=== PATIENT | female | born 1965 | race Hispanic/Latino ===

== ENCOUNTER 2019-01-19 10:01 | Observation (INO) | payer BC, OTHER ==
[~2019-01-19] VITALS: Ht 157.5 cm; Wt 86.2 kg
[~2019-01-19 10:01] MED LIST: LOTENSIN20 MG PO
[2019-01-19] MEDS ORDERED: HYDRALAZINE HCL 20 MG/ML VIAL IV STA ×2 (10:04→10:59)
--- NOTE | 2019-01-19 10:37 | Diagnostic Imaging Report ---
Examination: CT head without contrast Clinical Indication: Left-sided numbness. Right-sided facial numbness. Technique: Transaxial noncontrast images from the skull base through the vertex were obtained. Sagittal and coronal reformatted images were done. Dose modulation, iterative reconstruction, and/or weight based adjustment of the mA/kV was utilized to reduce the radiation dose to as low as reasonably achievable. Comparison: None. Findings: Scalp: No abnormalities. Bones: Intact. No fractures. No blastic or lytic lesions. Brain sulci: Appropriate for patient's age. Ventricles: Normal in size and configuration. No hydrocephalus. Extra-axial space: No abnormalities. Parenchyma: No abnormal densities. No masses, hemorrhage, or acute or chronic cortical based vascular insults. Suprasellar region: No abnormalities. Craniocervical junction: The foramen magnum is patent. No Chiari one malformation. Impression: No intracranial abnormality. Signed by: Dr. Keily Boudreaux M.D. on 01/19/2019 10:34 AM
--- NOTE | 2019-01-19 10:42 | NUR ---
Del STANDARDS ENGINEER at bedside at this time informing pt of plan of care, & educating regarding HTN management. Understanding verbalized.
--- NOTE | 2019-01-19 10:58 | Diagnostic Imaging Report ---
EXAMINATION: CHEST SINGLE (PORTABLE) INDICATION: Right arm heaviness. Weakness in the leg. COMPARISON: None FINDINGS: AP view TUBES and LINES: None. LUNGS: Lungs are well inflated. There are bibasilar atelectasis. There is mild prominence of the central pulmonary vasculature, consistent with pulmonary venous congestion. PLEURA: No pleural effusion or pneumothorax. HEART AND MEDIASTINUM: The cardiomediastinal silhouette is unremarkable. BONES AND SOFT TISSUES: No acute osseous lesion. Soft tissues are unremarkable. UPPER ABDOMEN: No free air under the diaphragm. IMPRESSION: Central pulmonary venous congestion. Signed by: Dr. Livan Barraza M.D. on 01/19/2019 10:54 AM
[2019-01-19] MEDS ORDERED: ASPIRIN 81 MG CHEW TAB ONE (11:09)
[2019-01-19] MEDS ORDERED: ASPIRIN 81 MG CHEW TAB PO ONE (11:15)
[2019-01-19 11:22] LABS: INR 0.87; PROTHROMBIN TIME 12.3 seconds (11.9-14.5)
[2019-01-19 11:23] LABS: PARTIAL THROMBOPLASTIN TIME 30.2 seconds (23.8-35.5)
[2019-01-19 11:28] LABS: ALANINE AMINOTRANSFERASE 18 IU/L (0-55); ALBUMIN 3.7 g/dL (3.5-5.0); ALBUMIN/GLOBULIN RATIO 0.8 (0.8-2.0); ALKALINE PHOSPHATASE 112 IU/L (40-150); ANION GAP 13.6 mmol/L (8-16); BLOOD UREA NITROGEN 7 mg/dL (7-26); BUN/CREATININE RATIO 10 (6-25); CALCIUM 9.9 mg/dL (8.4-10.2); CARBON DIOXIDE 26 mmol/L (22-29); CHLORIDE 101 mmol/L (98-107); CREATINE KINASE 39 IU/L (29-168); CREATININE, SERUM 0.72 mg/dL (0.57-1.11); EST GLOMERULAR FILTRATION RATE > 60 ML/MIN (60-); GLUCOSE 105 mg/dL (74-118); MAGNESIUM 2.2 MG/DL (1.3-2.1); POTASSIUM 3.6 mmol/L (3.5-5.1); SODIUM 137 mmol/L (136-145)
[2019-01-19 11:49] LABS: BILIRUBIN,URINE NEGATIVE (NEGATIVE); CLARITY,URINE CLEAR (CLEAR); COLOR,URINE YELLOW (YELLOW); KETONES,URINE NEGATIVE (NEGATIVE); LEUKOCYTE ESTERASE ,URINE NEGATIVE (NEGATIVE); NITRITE,URINE NEGATIVE (NEGATIVE); PROTEIN,URINE DIPSTICK TRACE (NEGATIVE); URINE UROBILINOGEN 0.2 mg/dL (0.2 - 1)
[2019-01-19 11:58] LABS: BACTERIA,URINE FEW /HPF; EPITHELIAL CELLS,URINE RARE /LPF; RBC,URINE 0-5 /HPF (0-5); WBC,URINE (MAN) 0-5 /HPF (0-5)
[2019-01-19 12:04] LABS: BASOPHILS # (AUTO) 0.1 (0.0-0.1); BASOPHILS % 0.5 % (0.0-1.0); EOSINOPHILS % 0.4 % (0.0-6.0); HEMATOCRIT 40.5 % (34.2-44.1); HEMOGLOBIN 13.2 g/dL (12.0-16.0); LYMPHOCYTES % 22.4 % (18.0-39.1); MEAN CORPUSCULAR HEMOGLOBIN 27.4 pg (28-32); MEAN CORPUSCULAR HGB CONC 32.6 g/dL (31-35); MONOCYTES # (AUTO) 0.5 (0.2-0.8); MONOCYTES % 5.4 % (4.4-11.3); NEUTROPHILS # (AUTO) 6.4 (2.1-6.9); NEUTROPHILS % 70.8 % (38.7-80.0); PLATELET COUNT 376 x10e3/uL (140-360); RED BLOOD COUNT 4.82 x10e6/uL (3.6-5.1); RED CELL DISTRIBUTION WIDTH 14.1 % (11.7-14.4)
--- NOTE | 2019-01-19 13:07 | Diagnostic Imaging Report ---
Examination: MRI BRAIN WITHOUT CONTRAST History: Right arm weakness. Comparison studies: Head CT performed January 19, 2019 Technique: Sagittal T2; axial DWI, FLAIR, GRE or SWI, T1, Coronal FLAIR. Intravenous contrast: None Findings: Scalp: No abnormal signal. No masses. Bone marrow: Normal in signal intensity. Brain volume: Adequate for age. No volume loss. Ventricles: Normal in size and configuration. No hydrocephalus. Extra-axial spaces: No abnormalities. Parenchyma: There are innumerable punctate areas of T2/FLAIR hyperintensity in the periventricular and subcortical white matter, nonspecific. No masses, hemorrhage, or acute vascular insults. Suprasellar and sellar region: No abnormalities. Craniocervical junction: No abnormalities. The foramen magnum is patent. No Chiari malformations. Vessels: Normal flow-voids in the arteries and sinuses. Additional findings:None. IMPRESSION: 1. No acute intracranial abnormalities. 2. Mild chronic microvascular ischemic change. Signed by: Dr. Keily Boudreaux M.D. on 01/19/2019 1:04 PM
[2019-01-19] MEDS ORDERED: HYDRALAZINE HCL 20 MG/ML VIAL IV PRN ×2 (15:00→15:15)
--- OUTSIDE RECORDS SUMMARY | 2019-01-19 15:17 | XMS REPORT ---
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 Allergies, Adverse Reactions, Alerts This patient has no known allergies or adverse reactions. Medications This patient has no known medications. Results Test Description Test Time Test Comments Text Results Atomic Results Result Comments MRI BRAIN WO 2019-01-19 12:48:00 [place] [address] Patient Name: DEREK MONROY MR #: [id number] : 1965 Age/Sex: 53/F Req #: [id number] Adm Physician: Ordered by: МАРИНА FRIEDMAN VISION SPECIALIST Report #: [id number] Location: ER Room/Bed: Procedure: [id number] MRI/MRI BRAIN WO Exam Date: Exam Time: REPORT STATUS: Signed Examination: MRI BRAIN WITHOUT CONTRAST History: Right arm weakness. Comparison studies: Head CT performed January 19, 2019 Technique: Sagittal T2; axial DWI, FLAIR, GRE or SWI, T1, Coronal FLAIR. Intravenous contrast: None Findings: Scalp: No abnormal signal. No masses. Bone marrow: Normal in signal intensity. Brain volume: Adequate for age. No volume loss. Ventricles: Normal in size and configuration. No hydrocephalus. Extra-axial spaces: No abnormalities. Parenchyma: There are innumerable punctate areas of T2/FLAIR hyperintensity in the periventricular and subcortical white matter, nonspecific. No masses, hemorrhage, or acute vascular insults. Suprasellar and sellar region: No abnormalities. Craniocervical junction: No abnormalities. The foramen magnum is patent. No Chiari malformations. Vessels: Normal flow-voids in the arteries and sinuses. Additional findings:None. IMPRESSION: 1. No acute intracranial abnormalities. 2. Mild chronic microvascular ischemic change. Signed by: Dr. Keily Boudreaux M.D. on 01/19/2019 1:04 PM Dictated By: KEILY GONSALEZ MD 1304 Transcribed By: GELA on 01/19/19 1304 COPY TO: МАРИНА FRIEDMAN NP CHEST SINGLE (PORTABLE) 2019-01-19 10:50:00 [place] [address] Patient Name: DEREK MONROY MR #: [id number] : 1965 Age/Sex: 53/F Req #: [id number] Adm Physician: Ordered by: МАРИНА FRIEDMAN NP Report #: [id number] Location: ER Room/Bed: Procedure: [id number] DX/CHEST SINGLE (PORTABLE) Exam Date: 01/19/19 Exam Time: 1005 REPORT STATUS: Signed EXAMINATION: CHEST SINGLE (PORTABLE) INDICATION: Right arm heaviness. Weakness in the leg. COMPARISON: None FINDINGS: AP view TUBES and LINES: None. LUNGS: Lungs are well inflated. There are bibasilar atelectasis. There is mild prominence of the central pulmonary vasculature, consistent with pulmonary venous congestion. PLEURA: No pleural effusion or pneumothorax. HEART AND MEDIASTINUM: The cardiomediastinal silhouette is unremarkable. BONES AND SOFT TISSUES: No acute osseous lesion. Soft tissues are unremarkable. UPPER ABDOMEN: No free air under the diaphragm. IMPRESSION: Central pulmonary venous congestion. Signed by: Dr. Fuentes Griffiths M.D. on 01/19/2019 10:54 AM Dictated By: FUENTES GRIFFITHS MD 1054 Transcribed By: GELA on 01/19/19 1054 COPY TO: МАРИНА FRIEDMAN NP CT BRAIN WO 2019-01-19 10:33:00 [place] [address] Patient Name: DEREK MONROY MR #: [id number] : 1965 Age/Sex: 53/F Req #: [id number] Adm Physician: Ordered by: МАРИНА FRIEDMAN NP Report #: [id number] Location: ER Room/Bed: Procedure: [id number] CT/CT BRAIN WO Exam Date: 01/19/19 Exam Time: 1005 REPORT STATUS: Signed Examination: CT head without contrast Clinical Indication: Left-sided numbness. Right-sided facial numbness. Technique: Transaxial noncontrast images from the skull base through the vertex were obtained. Sagittal and coronal reformatted images were done. Dose modulation, iterative reconstruction, and/or weight based adjustment of the mA/kV was utilized to reduce the radiation dose to as low as reasonably achievable. Comparison: None. Findings: Scalp: No abnormalities. Bones: Intact. No fractures. No blastic or lytic lesions. Brain sulci: Appropriate for patient's age. Ventricles: Normal in size and configuration. No h ydrocephalus. Extra-axial space: No abnormalities. Parenchyma: No abnormal densities. No masses, hemorrhage, or acute or chronic cortical based vascular insults. Suprasellar region: No abnormalities. Craniocervical junction: The foramen magnum is patent. No Chiari one malformation. Impression: No intracranial abnormality. Signed by: Dr. Keily Boudreaux M.D. on 01/19/2019 10:34 AM Dictated By: KEILY GONSALEZ MD 1034 Transcribed By: GELA on 01/19/19 1034 COPY TO: МАРИНА FRIEDMAN NP
[2019-01-19 16:26] VITALS: BP 187/84
[2019-01-19 16:54] VITALS: BP 187/84
--- NOTE | 2019-01-19 18:50 | NUR ---
Got report from previous nurse. family at bedside. call light within reach
[2019-01-19] MEDS ORDERED: LABETALOL HCL 5 MG/ML 20ML VIAL IV STA (19:10)
[2019-01-19] MEDS ORDERED: ACETAMIN/BUTALBITAL/CAFFEINE TAB PO PRN (19:15)
[2019-01-19 20:26] VITALS: BP 183/89
[2019-01-20] VITALS (8 sets, daily range): BP systolic 127–176; BP diastolic 58–98
[2019-01-20] MEDS: LABETALOL HCL 5 MG/ML 20ML VIAL IV PRN ×2 (00:16→21:11)
--- NOTE | 2019-01-20 01:51 | Consultation ---
DATE OF CONSULTATION: 01/19/2019 Neurology Consult Note. HISTORY OF PRESENT ILLNESS: Ms. Yanez is a 53-year-old right-hand dominant woman with past medical history significant for hypertension and prior history of anemia, admitted to [facility] on January 19, 2019 with symptoms suspicious for a stroke. 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 Ms. Yanez further describes the sensation as her legs "wobbled." Ms. Yanez sat in a chair and continued teaching. Several minutes later, as she tried to stand, Ms. Yanez discovered she could not stand due to weakness in her legs. Ms. Yanez reports she did not feel her legs would support her weight. One of her students alerted the Index Clerk regarding Ms. Yanez' symptoms. The Index Clerk Title I Teacher notified the school nurse who came to Ms. Yanez' classroom. The nurse performed a stroke evaluation which the patient reportedly passed. It was recommended Emergency Medical Services be notified so Ms. Yanez could be taken to the nearest emergency center for further evaluation. However, the patient refused transportation by Ambulance. She notified her sister of her symptoms. Her sister came to Ms. Yanez' school, picked her up and brought her to the Emergency Center at [facility] for further evaluation. Upon arrival in the Emergency Center, the patient had a temperature of 99.9 degrees Fahrenheit, a blood pressure of 226/139 mmHg and a pulse of 95 beats per minute. While in the Emergency Center, the patient experienced the onset of right hemiparesis. Her neurological examination is documented by the Emergency Center Physician as follows: Durham coma scale 15-eyes open-spontaneous (4); best verbal response-oriented (5); best motor response-obeys commands (6). The patient was noted to be awake, alert and oriented x3. Her speech was normal. Her cranial nerves were noted to be intact. Finger-nose test was noted to be moderately abnormal on the right. There was no finger-nose abnormality on the left. Decreased movement of the right upper and lower extremities was noted. The sensory deficit to light touch over the right side of the face was noted. A sensory deficit to pinprick over the right side of the face is noted. There is altered position sense in the right arm and right leg. Deep tendon reflexes were noted to be abnormal. Ms. Yanez was given an NIH Stroke Scale score of 7 with 3 points given for weakness in the right arm, 3 points given for weakness in the right leg, and 1 point given for sensory loss. To treat the patient's markedly elevated blood pressure, Ms. Yanez was given hydralazine intravenously. A stat CT of the brain without contrast was ordered. This study did not reveal evidence of recent large territorial ischemia, hemorrhage, mass, or mass effect. At this time, the Emergency Center Physician, Dr. Salamanca, notified me regarding the patient's history and findings on neurological examination. Dr. Salamanca noted the patient's symptoms and findings on neurological examination fluctuated during her course in the Emergency Center. Due to the fluctuation in neurological symptoms as well as the markedly elevated blood pressure, Ms. Yanez was determined not to be a candidate for intravenous thrombolysis. While in the Emergency Center, a stat MRI of the brain without contrast was performed. There was no evidence of recent ischemia on either DWI or ADC images. Ms. Yanez was admitted to [facility] for further evaluation and treatment of her hypertension. At the time of my evaluation, Ms. Yanez reports continued fluctuation in her neurological deficits as described above. REVIEW OF SYSTEMS: Dysarthria, numbness over the right side of the face, weakness of the right arm and bilateral lower extremities, numbness over the right hemibody, impairment of balance and gait, headache which is described as diffuse pressure and rated a 3 to 4/10. PAST MEDICAL HISTORY: Hypertension, prior history of anemia. PAST SURGICAL HISTORY: Cholecystectomy, bilateral tubal ligation/endometrial ablation. PAST HOSPITALIZATIONS: Surgeries/procedures as listed, hypertension. FAMILY MEDICAL HISTORY: Hypertension, diabetes mellitus, coronary artery disease, breast cancer and colon cancer. SOCIAL HISTORY: Ms. Yanez is . 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 The patient does not report current or prior tobacco or recreational drug use. The patient does endorse occasional alcohol use (wine). HOME MEDICATIONS: Benazepril 20 mg by mouth daily. ALLERGIES: NO KNOWN DRUG ALLERGIES. NO KNOWN FOOD ALLERGIES. NO KNOWN ALLERGIES TO LATEX. NO KNOWN ALLERGIES TO IODINE OR OTHER CONTRAST MATERIALS. PHYSICAL EXAMINATION: VITAL SIGNS: Height 62 inches, weight 190 pounds, BMI 34.8 kg/m2, blood pressure 187/84 mmHg, pulse 96 beats per minute, respiratory rate 16 breaths per minute, and oxygen saturation 98% on room air. GENERAL: The patient is awake and alert, does not appear distressed. Obese. HEENT: Normocephalic, atraumatic. Pupils are equal, round, and reactive to light. Moist mucous membranes. NECK: Supple. No appreciable thyromegaly. No appreciable carotid bruits. CARDIOVASCULAR: S1, S2, regular rate and rhythm. No murmurs, rubs, or gallops. RESPIRATORY: Clear to auscultation bilaterally. No wheezes, rhonchi, or rales. EXTREMITIES: No clubbing, cyanosis, or edema. The posterior tibial and dorsalis pedis pulses are 2+ and symmetric. SKIN: Warm and dry. No rashes or lesions. NEUROLOGIC: Memory/Attention: The patient is awake and alert, oriented to person, place, time, and situation. Cranial Nerves: Cranial nerve I - not tested. Cranial nerve II, III, IV, and - pupils are equal and round, react briskly to light (from 4 mm to 2 mm). Extraocular movements intact. No nystagmus. Cranial nerve V -sensation is diminished to light touch and pinprick in the right V2 distribution. Otherwise, sensation to light touch and pinprick is intact. Strength in the temporalis and masseter muscles is within normal limits. Her cranial nerve VII - the face is symmetric as are all facial movements. Strength is within normal limits. Cranial nerve VIII - hearing is intact to finger rub bilaterally. Cranial nerve IX, X - the soft palate elevates equally and symmetrically. Cranial nerve XI - normal strength of the bilateral sternocleidomastoid and trapezius muscles. Cranial nerve XII - the tongue protrudes midline and moves symmetrically from [id number]-dg-[id number]. Strength: Bulk is normal. Strength is 5/5 in the left deltoid, biceps, triceps, wrist flexors and extensors, finger flexors and extensors, intrinsic hand muscles, hip flexors, knee flexors and extensors, ankle dorsiflexion and plantar flexion, and intrinsic foot muscles. There is effort, dependent weakness in multiple muscles examined in the right arm and right leg in a nonanatomic distribution. The weakness improves somewhat with encouragement. Tone is normal in all four extremities. DTRs: Deep tendon reflexes are 1+ and symmetric at the triceps, biceps, brachioradialis, patellas, and Achilles. Plantar responses are flexor bilaterally. Sensation: Ms. Yanez reports very mildly diminished sensation to light touch and pinprick over the right arm and right leg. There is decrease in sensation to light touch and pinprick over the right arm and leg is not as prominent as the decreased sensation to light touch and pinprick in the right V2 distribution. Cerebellar: Elieta-simt-gtgwnk movements are intact without dysmetria or other impairment. There is ataxia with yrcd-yb-crjy movement of the right leg, beyond the bounds of paresis. Heel-mckenna movements are intact in the left leg. Gait: Deferred. Speech: Spontaneous speech is normal without appreciable dysarthria or aphasia. Repetition is intact. Involuntary movements: None. Pronator Drift: None. LABORATORY DATA: A basic metabolic panel is significant for a mildly elevated magnesium of 2.2, an elevated protein of 8.3, and an elevated globulin of 4.6. Cardiac enzymes are negative x1. The CBC with differential and platelets reveal a white blood cell count of 9.10 with a normal differential. The hemoglobin and hematocrit are 13.2 and 40.5, respectively. The platelet count is 376. The coagulation profile is within normal limits. A urinalysis is significant for specific gravity of 1.005 with trace protein. DIAGNOSTIC STUDIES: Electrocardiogram of 01/19/2019: Sinus rhythm at 82 beats per minute with a shortened DC interval. CT of the brain without contrast 01/19/2019: On my review, there is no evidence of recent large territorial ischemia, hemorrhage, mass, or mass effect. Cerebral volume is appropriate for age. There are no findings suspicious for chronic small-vessel ischemic disease. Chest x-ray 01/19/2019: Central pulmonary venous congestion. MRI of the brain without contrast 01/19/2019: On my review, there is no evidence of recent or remote large territorial ischemia, hemorrhage, mass, or mass effect. Cerebral volumes are appropriate for age. There are numerous scattered T2/FLAIR hyperintense foci in the supratentorial white matter compatible with fedx-cz-swhjhhkb chronic small-vessel ischemic disease. Bilateral carotid artery ultrasound with Doppler of 01/19/2019: There is no atherosclerosis in either carotid artery system. Flow is antegrade in the bilateral vertebral arteries. ASSESSMENT/PLAN: Ms. Yanez is a 53-year-old right-hand dominant woman with past medical history significant for hypertension and multiple, fluctuating neurological symptoms as detailed in the history of present illness. The patient has undergone a thorough neurological examination with findings detailed above. For the most part, neurological deficits are in a nonanatomic distribution. The patient's laboratory data and other diagnostic studies have been reviewed and are documented above. In my opinion, the patient has not experienced a transient ischemic attack or stroke. Based on her history, the findings on her neurological examination, and the results of her diagnostic studies, it is improbable the patient's symptoms are neurological in origin. However, Ms. Lyn blood pressure remains markedly elevated. Treatment of her hypertension is deferred to the primary service. Thank you for this consultation. There are no recommendations from the Neurology Service at this time. Please call again with any questions or concerns. TIME SPENT: 50 minutes. Fany Whittington MD CP/JOSHUA /[id number] MTDD
--- NOTE | 2019-01-20 07:11 | NUR ---
Gave report to oncoming nurse. call esteban within reach. patient in bed.
[2019-01-20] MEDS: BENAZEPRIL HCL 10 MG TAB PO SCH (08:22)
[2019-01-20] MEDS: METOPROLOL TARTRATE 25 MG TAB PO SCH ×2 (08:22→18:27)
--- NOTE | 2019-01-20 09:35 | NUR ---
Pt ambulatory, walking to bathroom and showered self with out use of assistance. Pt stated she is feeling a lot better than she was feeling yesterday when admitted.
--- NOTE | 2019-01-20 12:19 | NUR ---
ATTEMPTED TO SEE PT IN ROOM, NOT IN ROOM
--- NOTE | 2019-01-20 12:30 | NUR ---
Pt stated she is experiencing tingling on R side of mouth, lips, and weakness to RUE and RLE. Nurse asked pt to push against hands with foot, weakness compared to LLE noted. Nurse asked pt to squeeze hand, weaker squeeze noted to RUE. Pt was unable to stand on own without use of assistance. Dr. Aarti Rojas informed regarding condition.
--- NOTE | 2019-01-20 12:35 | NUR ---
Dr. Aarti Rojas gave order to inform Dr. Whittington of the situation.
--- NOTE | 2019-01-20 18:43 | NUR ---
Informed pt about physical therapy evaluation to be done. Pt understood order. Nurse witnessed pt being able to pull self with in bed with RUE, no difficulty. Moderate strength noted to RUE.
[2019-01-21 00:19] VITALS: BP 158/70
[2019-01-21 05:04] VITALS: BP 135/69
[2019-01-21 07:10] VITALS: BP 164/90
--- NOTE | 2019-01-21 07:30 | NUR ---
Received patient in report this morning. Patient is resting in bed. No S&S of distress noted.
[2019-01-21] MEDS: BENAZEPRIL HCL 10 MG TAB PO SCH (08:13)
[2019-01-21] MEDS: METOPROLOL TARTRATE 25 MG TAB PO SCH ×2 (08:13→17:40)
--- NOTE | 2019-01-21 08:16 | NUR ---
Patient is A&Ox3. Lung sounds clear. Bowel sounds active. Skin intact. No pain reported. Patient reports still feeling weakness on right side, confirmed by strength tests. Squeezing hands, pressing down and pushing up with hands showed moderate weakness on right side. Patient unable to lift drink off bedside table. Right leg barely able to lift off bed and patient has less control over than normal. Pushing feet against hands showed moderate difference between right and left foot. Reminded patient to call for assistance if wanting to get up and feeling unsteady. Patient looks forward to PT nilda. Bed locked in lowest position. Call light in reach. Patient reports no other S&S. Left patient sitting on side of bed eating breakfast. Will continue to monitor.
[2019-01-21 08:23] VITALS: BP 174/90
--- NOTE | 2019-01-21 11:52 | Diagnostic Imaging Report ---
Exam: Lumbar spine 2 views History: Weakness Comparison: None. Findings: There are 5 nonrib-bearing lumbar vertebral bodies. No acute, displaced fracture or subluxation. Soft tissue, ligamentous, and spinal cord abnormalities cannot be excluded on the basis of plain radiography. Intervertebral disc spaces and facet joints are well-maintained. Atherosclerotic vascular calcifications. Right upper quadrant surgical clips likely related to prior cholecystectomy. Sacroiliac joints are preserved. Impression: No acute osseous abnormality. Signed by: Dr. Conrado Santiago M.D. on 01/21/2019 11:49 AM
--- NOTE | 2019-01-21 11:55 | Diagnostic Imaging Report ---
Exam: Cervical spine complete History: Weakness, numbness Comparison: None. Findings: The cervical spine is visualized from the skull base to the bottom of C7/top of T1 on the lateral radiograph. No acute, displaced fracture or subluxation. Soft tissue, ligamentous, and spinal cord abnormalities cannot be excluded on the basis of plain radiography. Alignment is within normal limits. Intervertebral disc spaces are well-maintained. Atlantoaxial interval is normal neural foramina are widely patent as seen on the oblique radiographs. Prevertebral soft tissues are of normal thickness. Impression: No acute osseous abnormality. Signed by: Dr. Conrado Santiago M.D. on 01/21/2019 11:52 AM
[2019-01-21 12:07] VITALS: BP 156/84
[2019-01-21 16:38] VITALS: BP 132/63
[2019-01-21] MEDS ORDERED: METOPROLOL TART25 MG PO (18:14)
[2019-01-21] MEDS ORDERED: BENAZEPRIL HCL10 MG PO (18:14)
[2019-01-21] MEDS ORDERED: CLONIDINE HCL0.1 MG PO (18:16)
--- NOTE | 2019-01-21 18:37 | NUR ---
L and R 20g AC IVs removed at this time. Catheter tips intact. Pressure dressing applied.
--- NOTE | 2019-01-21 18:45 | NUR ---
Patient discharged home at this time. Patient in wheelchair, accompanied by staff to car. Discharge instructions given. New medications explained. Patient reports she has a BP monitor at home, instructed to use daily. Take Clonidine if SBP>170. Patient verbalized understanding. Patient reports she will use a walker from a family member. Given PT's number to make outpatient appointment, explained that case management will follow up with her to make sure she got PT scheduled. Patient verbalized understanding.
== END 2019-01-21 18:45 | disposition home or self-care (01) ==
LOC: ER 10:01 → ERHOLD 14:56 → IMCU 16:14
DX: I16.9 Hypertensive crisis, unspecified (principal); F41.9 Anxiety disorder, unspecified; R53.1 Weakness; D64.9 Anemia, unspecified
CPT/HCPCS: 36415; 70450; 70551; 71045; 72050; 72100; 80053; 81001; 82550; 82553; 83735; 84484; 85025; 85610; 85730; 93005; 93880; 97110; 97116; 97139; 97161; 99284; G0378 ×3; J0360; J3490